=== PATIENT | female | born 1965 | race African-American/Black ===

== ENCOUNTER 2019-12-16 11:56 | Emergency (ER) | payer BC ==
[~2019-12-16] VITALS: Ht 170.2 cm; Wt 79.0 kg
[2019-12-16] MEDS ORDERED: IBUPROFEN 600MG TABLET PO ONE (12:45)
[2019-12-16 14:41] LABS: BASOPHILS % 0.5 % (0.0-2.0); EOSINOPHILS % 1.3 % (0.0-5.0); HEMATOCRIT. 35.8 % (36.0-48.0); HEMOGLOBIN. 11.9 g/dL (12.0-16.0); LYMPHOCYTES % 32.6 % (20.0-50.0); MEAN CORPUSCULAR HEMOGLOBIN 29.7 pg (28.0-32.0); MEAN CORPUSCULAR VOLUME 89.1 fL (81.0-99.0); MEAN PLATELET VOLUME 8.1 fl (7.4-10.4); NEUTROPHILS % 58.6 % (40.0-76.0); PLATELET 269 x1000/uL (130-400); RED BLOOD CELL COUNT 4.02 mill/uL (4.2-5.4); RED CELL DISTRIBUTION WIDTH 14.6 % (11.6-14.6)
[2019-12-16 14:47] LABS: CHLORIDE 101 mEq/L (98-107)
[2019-12-16] MEDS ORDERED: ACETAMINOPHEN WITH CODEINE 300/30MG TABLET PO ONE (15:15)
[2019-12-16 15:35] VITALS: BP 140/85
== END 2019-12-16 15:38 | disposition home or self-care (01) ==
LOC: ER 11:56
DX: M79.601 Pain in right arm (principal); R07.89 Other chest pain; M25.511 Pain in right shoulder; E11.9 Type 2 diabetes mellitus without complications; I10 Essential (primary) hypertension
CPT/HCPCS: 36415; 71045; 80053; 83880; 84484; 85025; 93005; 99285

== ENCOUNTER 2023-12-25 15:27 | Emergency (ER) | payer BC, MEDICAID ==
[~2023-12-25] VITALS: Ht 170.2 cm; Wt 81.0 kg
[2023-12-25 15:46] VITALS: BP 132/69; PULSE 84; RESP 16; TEMP 98.6; O2SAT 100
[2023-12-25] MEDS ORDERED: NAPR500T7 MT (17:09)
[2023-12-25] MEDS ORDERED: DICL100G32 TP (17:09)
== END 2023-12-25 18:29 | disposition home or self-care (01) ==
LOC: ER 15:27
DX: M25.571 Pain in right ankle and joints of right foot (principal); E11.9 Type 2 diabetes mellitus without complications; E78.00 Pure hypercholesterolemia, unspecified; I10 Essential (primary) hypertension; Z98.890 Other specified postprocedural states
CPT/HCPCS: 73610; 99283